=== PATIENT | male | born 2000 | race Caucasian/White ===

== ENCOUNTER 2022-01-24 10:06 | Emergency (ER) | payer BC, MEDICAID ==
[2022-01-24 10:34] LABS: ANION GAP 10.5 meq/L (7-15); CHLORIDE,CL 105 mmol/L (98-107); SODIUM,NA 140 mmol/L (136-145)
[2022-01-24 10:35] LABS: ESTIMATED GFR 107 mL/min (>=60)
[2022-01-24 11:31] LABS: CORONAVIRUS COVID-19 NAA NEGATIVE (NEGATIVE); RESPIRATORY SYNCYTIAL VIR NAA NEGATIVE (NEGATIVE)
== END 2022-01-24 12:30 | disposition home or self-care (01) ==
LOC: SUPCPDRO 10:06 → MERGE 10:06 → LL.ED 10:06
DX: R56.9 Unspecified convulsions (principal); T50.905A Adverse effect of unspecified drugs, medicaments and biological substances, initial encounter; Z79.899 Other long term (current) drug therapy; Z79.84 Long term (current) use of oral hypoglycemic drugs; Z20.822 Contact with and (suspected) exposure to COVID-19
CPT/HCPCS: 0241U; 36415; 80053; 80175; 83735; 85025; 99283; 99284